=== PATIENT | male | born 1970 | race African-American/Black ===

== ENCOUNTER 2021-08-03 04:29 | Day surgery (SDC) | payer BC ==
[2021-07-29 14:47] VITALS: BMI 34.4
[2021-08-03] MEDS ORDERED: MIDAZOLAM HCL 2 MG/2 ML SINGLE DOSE VIAL ONE ×2 (11:25)
[2021-08-03 13:12] VITALS: BP 125/72; PULSE 85; TEMP 97.4
[2021-08-03] MEDS ORDERED: oxyCODONE HCL 5 MG TABLET PO PRN (15:02)
[2021-08-03] MEDS ORDERED: ACETAMINOPHEN 500 MG TABLET (FP) PO PRN (15:02)
[2021-08-03] MEDS ORDERED: ONDANSETRON 4 MG/2 ML VIAL IVPUSH PRN (15:02)
[2021-08-03] MEDS ORDERED: LACTATED RINGERS SOLUTION 1,000 ML IV SCH (15:15)
== END 2021-08-03 13:20 | disposition home or self-care (01) ==
LOC: JASU-SURG 04:29
PROVIDERS: ATTEND Urology
PROC: 0TF4XZZ Fragmentation in Left Kidney Pelvis, External Approach (ICD-10-PCS; principal; 2021-08-03 11:30)
DX: N20.0 Calculus of kidney (principal)

== ENCOUNTER 2021-10-28 05:20 | Day surgery (SDC) | payer BC ==
[2021-10-23 11:57] VITALS: BMI 34.4
[2021-10-28] MEDS ORDERED: MIDAZOLAM HCL 2 MG/2 ML SINGLE DOSE VIAL ONE (08:38)
[2021-10-28 10:10] VITALS: BP 132/85; PULSE 76; TEMP 98
== END 2021-10-28 10:10 | disposition home or self-care (01) ==
LOC: JASU-SURG 05:20
PROVIDERS: ATTEND Urology
PROC: 0TF3XZZ Fragmentation in Right Kidney Pelvis, External Approach (ICD-10-PCS; principal; 2021-10-28 08:30)
DX: N20.0 Calculus of kidney (principal)